=== PATIENT | female | born 1985 | race Caucasian/White ===

== ENCOUNTER 2020-08-30 11:24 | Emergency (ER) | payer MEDICAID, OTHER ==
[~2020-08-30] VITALS: Ht 144.8 cm; Wt 81.8 kg
[2020-08-30] MEDS ORDERED: dexamethasone sod phosphate 10mg/ml inj PO STA (11:53)
[2020-08-30 12:14] VITALS: BP 133/75
== END 2020-08-30 12:15 | disposition home or self-care (01) ==
LOC: ER 11:25
DX: J02.9 Acute pharyngitis, unspecified (principal); Z88.0 Allergy status to penicillin
CPT/HCPCS: 99283; J1100